=== PATIENT | male | born 1990 | race Hispanic/Latino ===

== ENCOUNTER 2017-01-22 00:09 | Emergency (ER) | payer SELFPAY ==
[~2017-01-22] VITALS: Ht 172.7 cm; Wt 57.5 kg
[~2017-01-22 00:09] MED LIST: AMOXICILLIN875 MG PO; MOTRIN600 MG PO; NO MEDS; NOHOMEMEDS; TRAMADOL HCL50 MG PO
[2017-01-22 02:08] VITALS: BP 92/76
== END 2017-01-22 02:10 | disposition home or self-care (01) ==
LOC: EME 00:09
PROC: 0HQ0XZZ Repair Scalp Skin, External Approach (ICD-10-PCS; principal; 2017-01-22)
DX: S01.01XA Laceration without foreign body of scalp, initial encounter (principal); X99.0XXA Assault by sharp glass, initial encounter
CPT/HCPCS: 70450; 99281; 99284

== ENCOUNTER 2017-01-24 21:50 | Emergency (ER) | payer SELFPAY ==
[~2017-01-24] VITALS: Ht 172.7 cm; Wt 50.7 kg
[2017-01-24] MEDS ORDERED: ZOFRAN ODT4 MG PO (22:44)
[2017-01-24 23:36] VITALS: BP 109/76
== END 2017-01-24 23:36 | disposition home or self-care (01) ==
LOC: EME 21:50
DX: S06.0X0D Concussion without loss of consciousness, subsequent encounter (principal); R11.2 Nausea with vomiting, unspecified; R07.9 Chest pain, unspecified
CPT/HCPCS: 93005; 99281; 99284

== ENCOUNTER 2017-02-27 12:12 | Emergency (ER) | payer SELFPAY ==
[~2017-02-27] VITALS: Ht 172.7 cm; Wt 57.5 kg
[~2017-02-27 12:12] MED LIST changes: +ZOFRAN ODT4 MG PO
[2017-02-27 12:57] VITALS: BP 122/77
== END 2017-02-27 15:28 | disposition home or self-care (01) ==
LOC: EME 12:12
DX: S01.01XD Laceration without foreign body of scalp, subsequent encounter (principal); W20.8XXD Other cause of strike by thrown, projected or falling object, subsequent encounter; Z48.02 Encounter for removal of sutures
CPT/HCPCS: 99281; 99283

== ENCOUNTER 2017-12-13 00:08 | Emergency (ER) | payer OTHER ==
[~2017-12-13] VITALS: Ht 172.7 cm; Wt 60.0 kg
[2017-12-13 00:12] VITALS: BP 125/83
[2017-12-13 00:37] LABS: HEMATOCRIT 39.2 % (38.0-50.0); HEMOGLOBIN 13.8 G/DL (12.5-16.6); MCH 31.3 PG (29.0-34.0); MCHC 35.2 G/DL (30.0-36.0); MCV 88.9 FL (86-99); PLATELET COUNT 215 K/uL (156-360); RBC DIS.WIDTH-CV 11.7 % (11.8-14.6); RBC DIS.WIDTH-SD 37.9 % (39-53); RED BLOOD COUNT 4.41 M/uL (4.00-5.50); WHITE BLOOD COUNT 12.1 K/uL (4.1-10.2)
[2017-12-13 00:45] LABS: ALBUMIN 4.3 g/dL (3.2-4.8); CHLORIDE 104 mEq/L (99-109); POTASSIUM 3.3 mEq/L (3.7-5.4); SODIUM 137 mEq/L (136-147)
[2017-12-13 00:48] LABS: GLUCOSE 135 mg/dL (70-99); TOTAL PROTEIN 6.5 g/dL (6.4-8.3)
[2017-12-13 00:50] LABS: TOTAL BILIRUBIN 0.8 mg/dL (0.0-1.0)
[2017-12-13 00:51] LABS: ALKALINE PHOSPHATASE 57 IU/L (3-129); CREATININE 0.7 mg/dL (0.6-1.3); GFR ESTIMATE (CALCULATED) > 59 mL/min/ (58.99-99999)
[2017-12-13 00:52] LABS: UREA NITROGEN (BUN) 16 mg/dL (9-23)
[2017-12-13 00:53] LABS: AST (GOT) 23 IU/L (2-34)
[2017-12-13 00:54] LABS: ALT (GPT) 26 IU/L (3-49)
[2017-12-13 00:55] LABS: LIPASE 43 U/L (1.0-51.0)
[2017-12-13 02:00] LABS: APPEARANCE CLEAR ((CLEAR)); BILIRUBIN NEGATIVE; BLOOD NEGATIVE; COLOR YELLOW ((YELLOW)); GLUCOSE (STRIP) NEGATIVE; KETONES 5; LEUKOCYTES NEGATIVE; NITRITE NEGATIVE; PROTEIN (STRIP) NEGATIVE; UCUL ADDED? NO; UROBILINOGEN 0.2 MG/DL (0.2-1.0)
== END 2017-12-13 02:51 | disposition home or self-care (01) ==
LOC: EME 00:08
DX: R10.11 Right upper quadrant pain (principal); R11.2 Nausea with vomiting, unspecified; K59.00 Constipation, unspecified
CPT/HCPCS: 74176; 80053; 81003; 83690; 85027; 99281; 99284; J0780

== ENCOUNTER 2018-04-26 04:50 | Emergency (ER) | payer OTHER ==
[~2018-04-26] VITALS: Ht 172.7 cm; Wt 55.9 kg
[2018-04-26 05:33] LABS: CHLORIDE 108 mEq/L (99-109); POTASSIUM 4.1 mEq/L (3.7-5.4); SODIUM 139 mEq/L (136-147)
[2018-04-26 05:35] LABS: GLUCOSE 96 mg/dL (70-99)
[2018-04-26 05:38] LABS: TROP-I INTERPRETATION NEGATIVE; TROPONIN-I < 0.01 ng/mL (0.0-0.30)
[2018-04-26 05:39] LABS: CREATININE 0.7 mg/dL (0.6-1.3); GFR ESTIMATE (CALCULATED) > 59 mL/min/ (58.99-99999)
[2018-04-26 05:40] LABS: UREA NITROGEN (BUN) 11 mg/dL (9-23)
[2018-04-26 06:05] VITALS: BP 104/78
== END 2018-04-26 06:06 | disposition home or self-care (01) ==
LOC: EME 04:50
PROVIDERS: Emergency Medicine
DX: R07.89 Other chest pain (principal); T40.7X5A Adverse effect of cannabis (derivatives), initial encounter
CPT/HCPCS: 71046; 80048; 84484; 93005; 99281; 99284